=== PATIENT | female | born 1985 | race Caucasian/White ===

== ENCOUNTER 2020-12-14 17:30 | Emergency (ER) | payer OTHER ==
[2020-12-14 18:20] LABS: ECSTASY (MDMA) NEGATIVE (NEGATIVE); MARIJUANA (THC) NEGATIVE (NEGATIVE); METHADONE NEGATIVE (NEGATIVE)
[2020-12-14 18:21] LABS: AMPHETAMINES POSITIVE (NEGATIVE); BARBITURATES NEGATIVE (NEGATIVE); OPIATES NEGATIVE (NEGATIVE); OXYCODONE NEGATIVE (NEGATIVE)
[2020-12-14 19:44] LABS: BILIRUBIN NEGATIVE (NEGATIVE); BLOOD NEGATIVE Ery/uL (NEGATIVE); CLARITY CLEAR (CLEAR); COLOR YELLOW (YELLOW); GLUCOSE (U) NORMAL (NORMAL); LEUKOCYTES NEGATIVE Leu/uL (NEGATIVE); NITRITE NEGATIVE (NEGATIVE); PROTEIN NEGATIVE (NEGATIVE); UROBILINOGEN 0.2 mg/dL (0.2-1.0)
[2020-12-14 19:44] LABS: BASOPHIL 0.5 % (0-2); EOSINOPHIL 3.4 % (0-5); HCT 43.7 % (37.0-47.0); HGB 14.3 g/dl (12.5-16.0); LYMPHOCYTE 29.4 % (15-48); MCH 29.9 pg (25.0-31.0); MCHC 32.7 g/dL (32.0-36.0); MCV 91.2 fL (78.0-100.0); MONOCYTE 6.6 % (0-12); MPV 9.9 fL (6.0-9.5); NEUTROPHIL 59.7 % (41-80); NRBC 0; PLT 245 K/uL (150-400); RBC 4.79 M/uL (4.20-5.40); RDW 12.2 % (11.5-14.0)
[2020-12-14 19:49] LABS: BACTERIA TRACE
[2020-12-14 20:06] LABS: ACETAMINOPHEN (TYLENOL) < 2.0 ug/mL (10.0-30.0); ALBUMIN 3.4 g/dL (3.4-5.0); ALKALINE PHOSHATASE 72 U/L (46-116); ALT 20 U/L (14-59); AST 9 U/L (15-37); BILIRUBIN - TOTAL 0.5 mg/dL (0.2-1.0); BUN 9 mg/dL (7-18); BUN/CREAT RATIO (CALC) 12.3 RATIO; CHLORIDE 102 mmol/L (98-107); CO2 (BICARBONATE) 28 mmol/L (21-32); CREATININE 0.73 mg/dL (0.51-0.95); GLOBULIN (CALCULATION) 3.7 g/dL; GLUCOSE 92 mg/dL (74-106); POTASSIUM 3.5 mmol/L (3.5-5.1); TOTAL PROTEIN 7.1 g/dL (6.4-8.2)
== END 2020-12-14 21:50 | disposition home or self-care (01) ==
LOC: FER 17:30
PROVIDERS: Emergency Medicine
DX: G40.509 Epileptic seizures related to external causes, not intractable, without status epilepticus (principal); T36.1X5A Adverse effect of cephalosporins and other beta-lactam antibiotics, initial encounter; F15.90 Other stimulant use, unspecified, uncomplicated; F17.210 Nicotine dependence, cigarettes, uncomplicated
CPT/HCPCS: 36415; 70450; 80053; 80305; 81001; 85025; G0480

== ENCOUNTER 2021-01-21 14:17 | Emergency (ER) | payer OTHER ==
[2021-01-21 15:46] LABS: BASOPHIL 0.7 % (0-2); EOSINOPHIL 2.5 % (0-5); HCT 44.4 % (37.0-47.0); HGB 14.8 g/dl (12.5-16.0); LYMPHOCYTE 41.1 % (15-48); MCH 30.4 pg (25.0-31.0); MCHC 33.3 g/dL (32.0-36.0); MCV 91.2 fL (78.0-100.0); MONOCYTE 7.9 % (0-12); NEUTROPHIL 47.2 % (41-80); NRBC 0; PLT 296 K/uL (150-400); RBC 4.87 M/uL (4.20-5.40); WBC 8.5 K/uL (4.0-10.5)
[2021-01-21 15:53] LABS: ALBUMIN 3.8 g/dL (3.4-5.0); BILIRUBIN - TOTAL 0.3 mg/dL (0.2-1.0); BUN/CREAT RATIO (CALC) 18.8 RATIO; CREATININE 0.64 mg/dL (0.51-0.95); GLOBULIN (CALCULATION) 4.4 g/dL; POTASSIUM 3.7 mmol/L (3.5-5.1); TOTAL PROTEIN 8.2 g/dL (6.4-8.2)
[2021-01-21 16:58] LABS: BILIRUBIN NEGATIVE (NEGATIVE); BLOOD NEGATIVE Ery/uL (NEGATIVE); CLARITY CLEAR (CLEAR); COLOR YELLOW (YELLOW); GLUCOSE (U) NORMAL (NORMAL); LEUKOCYTES TRACE Leu/uL (NEGATIVE); NITRITE NEGATIVE (NEGATIVE); PROTEIN NEGATIVE (NEGATIVE); UROBILINOGEN 0.2 mg/dL (0.2-1.0)
[2021-01-21 17:02] LABS: AMPHETAMINES NEGATIVE (NEGATIVE); BARBITURATES NEGATIVE (NEGATIVE); ECSTASY (MDMA) NEGATIVE (NEGATIVE); MARIJUANA (THC) NEGATIVE (NEGATIVE); METHADONE NEGATIVE (NEGATIVE); OPIATES NEGATIVE (NEGATIVE); OXYCODONE NEGATIVE (NEGATIVE)
[2021-01-21 17:07] LABS: BACTERIA TRACE; URINARY WBC RARE
== END 2021-01-21 18:08 ==
LOC: FER 14:17
PROVIDERS: Emergency Medicine; Nurse Practitioner Family
DX: G40.909 Epilepsy, unspecified, not intractable, without status epilepticus (principal); R55 Syncope and collapse; F17.210 Nicotine dependence, cigarettes, uncomplicated; Z79.899 Other long term (current) drug therapy
CPT/HCPCS: 36415; 70450; 80053; 80305; 81001; 85025; 93005

== ENCOUNTER 2021-06-29 14:46 | Emergency (ER) | payer OTHER ==
[2021-06-29 16:44] LABS: BILIRUBIN NEGATIVE (NEGATIVE); BLOOD NEGATIVE Ery/uL (NEGATIVE); CLARITY CLEAR (CLEAR); COLOR YELLOW (YELLOW); GLUCOSE (U) NORMAL (NORMAL); LEUKOCYTES TRACE Leu/uL (NEGATIVE); NITRITE NEGATIVE (NEGATIVE); PROTEIN NEGATIVE (NEGATIVE); UROBILINOGEN 0.2 mg/dL (0.2-1.0)
[2021-06-29 17:19] LABS: BACTERIA TRACE
[2021-06-29] MEDS ORDERED: MEDROL 4MG DOSEP4 MG PO (17:47)
[2021-06-29] MEDS ORDERED: AUGMENTIN 875-1 EACH PO (17:47)
== END 2021-06-29 18:15 | disposition home or self-care (01) ==
LOC: FER 14:46
PROVIDERS: Emergency Medicine
DX: J02.0 Streptococcal pharyngitis (principal); J36 Peritonsillar abscess
CPT/HCPCS: 81001; 87088; 87880; 99283; J1100

== ENCOUNTER 2021-10-10 21:48 | Emergency (ER) | payer OTHER ==
[~2021-10-10 21:48] MED LIST: AUGMENTIN 875-1 EACH PO; MEDROL 4MG DOSEP4 MG PO
[2021-10-10 22:01] LABS: BASOPHIL 0.4 % (0-2); EOSINOPHIL 0.4 % (0-5); HCT 42.9 % (37.0-47.0); HGB 14.2 g/dl (12.5-16.0); LYMPHOCYTE 26.4 % (15-48); MCH 29.3 pg (25.0-31.0); MCHC 33.1 g/dL (32.0-36.0); MCV 88.6 fL (78.0-100.0); MONOCYTE 7.8 % (0-12); MPV 9.9 fL (6.0-9.5); NEUTROPHIL 64.6 % (41-80); NRBC 0; PLT 281 K/uL (150-400); RBC 4.84 M/uL (4.20-5.40); RDW 12.8 % (11.5-14.0); WBC 14.1 K/uL (4.0-10.5)
[2021-10-10 22:24] LABS: ALBUMIN 4.1 g/dL (3.4-5.0); BILIRUBIN - TOTAL 0.2 mg/dL (0.2-1.0); BUN/CREAT RATIO (CALC) 14.1 RATIO; CREATININE 0.71 mg/dL (0.51-0.95); GLOBULIN (CALCULATION) 4.1 g/dL; POTASSIUM 3.7 mmol/L (3.5-5.1); TOTAL PROTEIN 8.2 g/dL (6.4-8.2)
[2021-10-10 23:22] LABS: BILIRUBIN NEGATIVE (NEGATIVE); BLOOD NEGATIVE Ery/uL (NEGATIVE); CLARITY CLEAR (CLEAR); COLOR YELLOW (YELLOW); GLUCOSE (U) NORMAL (NORMAL); LEUKOCYTES TRACE Leu/uL (NEGATIVE); NITRITE NEGATIVE (NEGATIVE); PROTEIN NEGATIVE (NEGATIVE); SPECIFIC GRAVITY >=1.030 (1.001-1.030); UROBILINOGEN 0.2 mg/dL (0.2-1.0); pH 5.5 (5.0-9.0)
[2021-10-10 23:23] LABS: CORONAVIRUS 2019 SARS-COV-2 NEGATIVE (NEGATIVE)
[2021-10-10 23:24] LABS: INFLUENZA A NAA NEGATIVE (NEGATIVE)
[2021-10-10 23:25] LABS: AMPHETAMINES NEGATIVE (NEGATIVE); BARBITURATES NEGATIVE (NEGATIVE); ECSTASY (MDMA) NEGATIVE (NEGATIVE); MARIJUANA (THC) NEGATIVE (NEGATIVE); METHADONE NEGATIVE (NEGATIVE); OPIATES NEGATIVE (NEGATIVE); OXYCODONE NEGATIVE (NEGATIVE)
[2021-10-10 23:30] LABS: BACTERIA 1+
[2021-10-10 23:31] LABS: MUCOUS TRACE
[2021-10-11] MEDS ORDERED: LEVETIRACETAM500 MG PO (00:07)
== END 2021-10-11 00:17 | disposition home or self-care (01) ==
LOC: FER 21:48
PROVIDERS: Internal Medicine
DX: G40.909 Epilepsy, unspecified, not intractable, without status epilepticus (principal); S80.12XA Contusion of left lower leg, initial encounter; I10 Essential (primary) hypertension; F17.210 Nicotine dependence, cigarettes, uncomplicated; Z20.822 Contact with and (suspected) exposure to COVID-19
CPT/HCPCS: 36415; 71045; 73590; 80053; 80305; 81001; 84443; 85025; J1953; J7040; U0002